=== PATIENT | female | born 1985 | race Caucasian/White ===

== ENCOUNTER 2019-01-11 05:33 | Outpatient (CLI) | payer OTHER ==
[~2019-01-11] VITALS: Ht 162.6 cm; Wt 113.9 kg
[2019-01-11] MEDS ORDERED: FLUT9.9S NSEACH (14:40)
[2019-01-11] MEDS ORDERED: FAMO20TA3 PO (14:40)
[2019-01-11] MEDS ORDERED: PYRI100T2 PO (14:40)
[2019-01-11] MEDS ORDERED: CRAN500T2 PO (14:40)
== END 2019-01-11 14:42 | disposition home or self-care (01) ==
LOC: PREOP 05:33
PROVIDERS: ATTEND Otolaryngology Otolaryngology/Facial Plastic Surgery
DX: Z01.818 Encounter for other preprocedural examination (principal)

== ENCOUNTER 2019-01-14 06:20 | Day surgery (SDC) | payer OTHER ==
[~2019-01-14] VITALS: Ht 162.6 cm; Wt 113.9 kg
[2019-01-14] VITALS (12 sets, daily range): BP systolic 117–136; BP diastolic 78–99
[~2019-01-14 06:20] MED LIST: CRAN500T2 PO; FAMO20TA3 PO; FLUT9.9S NSEACH; PYRI100T2 PO
[2019-01-14] MEDS ORDERED: FAMOTIDINE 20MG/2ML IV (PEPCID) IV ONE (07:15)
--- NOTE | 2019-01-14 07:40 | Progress Note-Pre Operative ---
Pre-Operative Progress Note H&P Reviewed The H&P was reviewed, patient examined and no changes noted. Date Seen by Provider: January 14, 2019 Time Seen by Provider: 07:00 Date H&P Reviewed: January 14, 2019 Time H&P Reviewed: 07:00 Pre-Operative Diagnosis: Rec Tons/ Tonsillar Hyprtrophy CRISTAL MONK MD January 14, 2019 07:39
[2019-01-14] MEDS ORDERED: LACTATED RINGERS 1,000 ML IV PRN (07:42)
[2019-01-14 08:10] LABS: BASOPHILS % (AUTO) 0 % (0-10); EOSINOPHILS % (AUTO) 1 % (0-10); HEMATOCRIT 43 % (35-52); HEMOGLOBIN 14.3 G/DL (11.5-16.0); LYMPHOCYTES # (AUTO) 1.7 X 10^3 (1.0-4.0); LYMPHOCYTES % (AUTO) 21 % (12-44); MEAN CORPUSCULAR HEMOGLOBIN 30 PG (25-34); MEAN CORPUSCULAR HGB CONC 33 G/DL (32-36); MEAN CORPUSCULAR VOLUME 91 FL (80-99); MEAN PLATELET VOLUME 9.9 FL (7.4-10.4); MONOCYTES # (AUTO) 0.7 X 10^3 (0.0-1.0); MONOCYTES % (AUTO) 9 % (0-12); NEUTROPHILS # (AUTO) 5.4 X 10^3 (1.8-7.8); NEUTROPHILS % (AUTO) 69 % (42-75); PLATELET COUNT 301 10^3/uL (130-400); RED CELL DISTRIBUTION WIDTH 12.9 % (10.0-14.5); WHITE BLOOD COUNT 7.9 10^3/uL (4.3-11.0)
[2019-01-14] MEDS ORDERED: NEOSTIGMINE 1 MG/ML 5 ML SYRINGE ONE (08:22)
[2019-01-14] MEDS ORDERED: DEXAMETHASONE 10 MG/ML (DECADRON) 1 ML VIAL ONE (08:22)
[2019-01-14] MEDS ORDERED: SEVOFLURANE (ULTANE) 15 ML INHAL SOLN ONE (08:22)
[2019-01-14] MEDS ORDERED: ROCURONIUM 10 MG/ML 5 ML SYRINGE IV ONE (08:22)
[2019-01-14] MEDS ORDERED: LIDOCAINE PF 2% 5 ML (XYLOCAINE) VIAL ONE (08:22)
[2019-01-14] MEDS ORDERED: fentaNYL INJECTION 100 MCG/2 ML AMP ONE (08:22)
[2019-01-14] MEDS ORDERED: MIDAZOLAM 2 MG/2 ML (VERSED) VIAL ONE (08:22)
[2019-01-14] MEDS ORDERED: GLYCOPYRROLATE 0.2 MG/ML (ROBINUL) 2 ML VIAL ONE (08:22)
[2019-01-14] MEDS ORDERED: proPOfol 200 MG/20 ML (DIPRIVAN) VIAL IV ONE ×2 (08:22→08:44)
[2019-01-14] MEDS ORDERED: ONDANSETRON 4 MG/2 ML (SDV) Z0FRAN ONE (08:22)
[2019-01-14] MEDS ORDERED: HYDROmorphone 2 MG/ML VIAL (DILAUDID) ONE (08:48)
[2019-01-14] MEDS ORDERED: NS IV 1000 ML 1,000 ML IV SCH (08:57)
--- NOTE | 2019-01-14 08:57 | Progress Note-Post Operative ---
Post-Operative Progess Note Surgeon (s)/Aircraft Painter Apprentice (s) Surgeon CRISTAL MONK MD Aircraft Painter Apprentice n/a Pre-Operative Diagnosis Rec Tons/ Tonsillar Hyprtrophy Post-Operative Diagnosis same Post-Op Procedure Note Date of Procedure: January 14, 2019 Name of Procedure Performed: Tonsillectomy Description & Findings Description and Findings: n/a Anesthesia Type get Estimated Blood Loss minimal Packing none. Specimen(s) collected/removed tonsils CRISTAL MONK MD January 14, 2019 08:57
[2019-01-14] MEDS ORDERED: APAP 325 MG/10.15 ML LIQ (TYLENOL) UDC PO PRN (09:00)
[2019-01-14] MEDS ORDERED: HYDROcodone/APAP 7.5MG-325 MG/15 ML (LORTAB) UDC PO PRN (09:00)
[2019-01-14] MEDS ORDERED: ONDANSETRON 4 MG/2 ML (SDV) Z0FRAN IVP PRN (09:15)
[2019-01-14] MEDS ORDERED: HYDROmorphone 2 MG/ML VIAL (DILAUDID) IV ONE (09:15)
[2019-01-14] MEDS ORDERED: AMOX200S8 PO (10:07)
[2019-01-14] MEDS ORDERED: HYDR15SO8 PO (10:07)
[2019-01-14] MEDS ORDERED: TETRACAINESUCKERS MT (10:07)
[2019-01-14] MEDS ORDERED: DEXAINTSOL PO (10:07)
--- NOTE | 2019-01-14 13:05 | Anesthesia-General Post-Op ---
General Patient Condition Mental Status/LOC: Same as Preop Cardiovascular: Satisfactory Nausea/Vomiting: Absent Respiratory: Satisfactory Pain: Controlled Complications: Absent Post Op Complications Complications None Follow Up Care/Instructions Patient Instructions None needed. Anesthesia/Patient Condition Patient Condition Patient was seen after the procedure and she was doing well, no complaints, stable vital signs, no apparent adverse anesthesia problems. HARRY STEVE DO January 14, 2019 13:04
== END 2019-01-14 12:30 | disposition home or self-care (01) ==
LOC: SDC 06:20
PROVIDERS: ATTEND Otolaryngology Otolaryngology/Facial Plastic Surgery
DX: J35.01 Chronic tonsillitis (principal); K21.9 Gastro-esophageal reflux disease without esophagitis; F41.9 Anxiety disorder, unspecified; E66.01 Morbid (severe) obesity due to excess calories; Z68.41 Body mass index [BMI] 40.0-44.9, adult; Z79.899 Other long term (current) drug therapy
CPT/HCPCS: 36415; 84703; 85025; 87081